=== PATIENT | male | born 1960 | race Caucasian/White ===

== ENCOUNTER → 2018-07-29 | Outpatient (CLI) | payer OTHER ==
[~2018-07-29] MED LIST: ANTIVERT25 MG PO; AUGMENTIN 875875 MG PO; CIPROFLOXACIN500 M1 PO; FLONASE NS; TOPROL XL100 MG PO; ZOFRAN ODT4 MG PO
== END ==
LOC: CAT 08:07
DX: M47.812 Spondylosis without myelopathy or radiculopathy, cervical region (principal); J32.2 Chronic ethmoidal sinusitis; M48.02 Spinal stenosis, cervical region; M25.78 Osteophyte, vertebrae; J32.3 Chronic sphenoidal sinusitis; R53.1 Weakness; R26.89 Other abnormalities of gait and mobility

== ENCOUNTER → 2018-08-01 | Outpatient (CLI) | payer OTHER | LOC: RAD 12:15 | DX: M47.815 Spondylosis without myelopathy or radiculopathy, thoracolumbar region (principal); M51.35 Other intervertebral disc degeneration, thoracolumbar region; M41.86 Other forms of scoliosis, lumbar region; M48.02 Spinal stenosis, cervical region; M54.89 Other dorsalgia; R53.1 Weakness; Z95.0 Presence of cardiac pacemaker ==

== ENCOUNTER → 2018-08-05 | Outpatient (CLI) | payer OTHER | LOC: CAT 09:40 | DX: M47.814 Spondylosis without myelopathy or radiculopathy, thoracic region (principal); M48.07 Spinal stenosis, lumbosacral region; M43.16 Spondylolisthesis, lumbar region; J43.9 Emphysema, unspecified; M48.02 Spinal stenosis, cervical region; R53.1 Weakness ==

== ENCOUNTER → 2020-04-21 | Outpatient (CLI) | payer OTHER | LOC: SJCVCIMAG 09:45 | PROVIDERS: ATTEND Internal Medicine | DX: I65.23 Occlusion and stenosis of bilateral carotid arteries (principal); I35.1 Nonrheumatic aortic (valve) insufficiency; I77.810 Thoracic aortic ectasia; I48.0 Paroxysmal atrial fibrillation; Z95.0 Presence of cardiac pacemaker ==